=== PATIENT | female | born 1950 | race Caucasian/White ===

== ENCOUNTER → 2016-10-31 | Outpatient (CLI) | payer OTHER | LOC: FIMAGING 09:36 | PROVIDERS: ATTEND Internal Medicine Hematology & Oncology | DX: J90 Pleural effusion, not elsewhere classified (principal); C56.9 Malignant neoplasm of unspecified ovary ==

== ENCOUNTER → 2016-11-05 | Outpatient (CLI) | payer OTHER ==
[~2016-11-05] MED LIST: NA BICARBONATE 50 MEQ/50 ML VIAL ONE
== END ==
LOC: FIMAGING 09:38
PROVIDERS: ATTEND Physician Assistant
DX: Z09 Encounter for follow-up examination after completed treatment for conditions other than malignant neoplasm (principal); Z87.09 Personal history of other diseases of the respiratory system; Z85.43 Personal history of malignant neoplasm of ovary

== ENCOUNTER → 2017-03-31 | Outpatient (CLI) | payer OTHER ==
[~2017-03-31] MED LIST changes: +LIDOCAINE 1% 300 MG/30 ML SDV ONE; -NA BICARBONATE 50 MEQ/50 ML VIAL ONE
== END ==
LOC: FIMAGING 09:11
PROVIDERS: ATTEND Internal Medicine Hematology & Oncology
PROC: 0W993ZZ Drainage of Right Pleural Cavity, Percutaneous Approach (ICD-10-PCS; principal; 2017-03-31)
DX: J90 Pleural effusion, not elsewhere classified (principal)

== ENCOUNTER → 2017-05-15 | Outpatient (CLI) | payer OTHER | LOC: FIMAGING 09:43 | PROVIDERS: ATTEND Internal Medicine Hematology & Oncology | PROC: 0W993ZZ Drainage of Right Pleural Cavity, Percutaneous Approach (ICD-10-PCS; principal; 2017-05-15) | DX: C56.9 Malignant neoplasm of unspecified ovary (principal); J90 Pleural effusion, not elsewhere classified ==

== ENCOUNTER 2017-06-29 10:17 | Emergency (ER) | payer OTHER ==
[2017-06-29 10:23] VITALS: TEMP 98.1
--- NOTE | 2017-06-29 10:32 | CPEKG ---
Heart Rate: 76 RR Interval: 789 P-R Interval: 128 QRSD Interval: 76 QT Interval: 380 QTC Interval: 428 P Dayton: 26 QRS [place]: 12 T Wave [place]: 22 EKG Severity - OTHERWISE NORMAL ECG - EKG Impression: SINUS RHYTHM EKG Impression: LOW VOLTAGE IN FRONTAL LEADS Electronically Signed By: Kevyn Gerard 29-Jun-2017 15:31:42
--- NOTE | 2017-06-29 10:53 | EDPHY ---
H & P Time Seen by Provider: 06/29/17 10:33 HPI/ROS: Chief complaint. Rapid heart rate, dizzy. Patient is a 66-year-old female with metastatic ovarian cancer. She has had recurrent right pleural effusion with thoracentesis ease. Last was about a month ago. She has now had 1 day of sense of rapid heart rate that comes and goes and is somewhat dizzy or lightheaded when it seems to be beating fast. She has some nausea. She yesterday had an ache in the left posterior chest that is not there today. No fever cough. She has shortness of breath with exertion. No heart history. ROS Constitutional. no fever/chills, no weakness Eyes. no problems with vision ENT. no sore throat, no nasal drainage Cardiovascular. No chest discomfort today. Posterior left chest discomfort yesterday. Rapid heart rate intermittently Respiratory. Exertional shortness of breath Abdominal. no abdominal pain, no nausea/vomiting, no diarrhea . no problems urinating MS. no calf pain/swelling, no neck/back pain, no joint pain Skin. no rash Lymph. no swollen glands Neuro. no headache, no dizziness, no difficulty walking or with speech Past Medical/Surgical History: Ovarian cancer, hypothyroid Social History: , nonsmoker, no alcohol Smoking Status: Former smoker Physical Exam: General Appearance: Alert well-developed female mild distress vital signs are stable Eyes: Pupils equal and round no pallor or injection. ENT, Mouth: Mucous membranes are moist. Respiratory: No retractions. Decreased breath sounds right lung base Cardiovascular: Regular rate and rhythm. Gastrointestinal: Ascites present Neurological: Awake and alert, sensory and motor exams grossly normal. Skin: Warm and dry, no rashes. Musculoskeletal: Neck is supple nontender. Extremities symmetrical, full range of motion. Psychiatric: Patient is oriented X 3, there is no agitation. Constitutional: Initial Vital Signs Temperature (C) 36.7 C 06/29/17 10:17 Heart Rate 81 06/29/17 10:17 Respiratory Rate 18 06/29/17 10:17 Blood Pressure 109/86 H 06/29/17 10:17 O2 Sat (%) 94 06/29/17 10:17 O2 Delivery Mode Room Air Allergies/Adverse Reactions: No Known Allergies Allergy (Verified 06/29/17 10:23) Home Medications: Medication Instructions Recorded THYROID 03/07/15 Medical Decision Making - Diagnostics EKG Interpretation: EKG interpreted by me shows normal sinus rhythm with normal interval and axis. QRS is normal there is no significant ST elevation or depression. No arrhythmia. The rate is 76. Low voltage throughout Imaging Results: Imaging Impressions Chest X-Ray 06/29/17 10:39 Impression: Large right pleural effusion with associated atelectasis. Echocardiogram reviewed by me and discussed with Dr. Cox shows trace pericardial effusion but no evidence for tamponade. Cardiac function otherwise normal Chest x-ray shows significant right-sided pleural effusion Procedures: IV normal saline, monitor ED Course/Re-evaluation: On re-evaluation 1:10 p.m. patient is stable. The patient, her , and I discussed imaging and lab results. We discussed treatment plan including recommendation for thoracentesis. They expressed understanding And agreement I discussed the case with Dr. Hawkins, our radiology who will perform the thoracentesis. Ultrasound-guided thoracentesis order is entered. In further discussion with the patient and her at the 1:20 p.m. I explained that the ultrasound guided thoracentesis had been ordered but I can't give them a time frame specifically and could be in 30 minutes aura could be in 2 hours. They are upset about this and do not wish to wait. I encouraged him to call in the morning to schedule the thoracentesis. They do already have an appointment on . I have encouraged him to call or return to the ER should she have worsening symptoms. They expressed understanding and agreement Differential Diagnosis: I considered acute coronary syndrome, pericardial effusion and tamponade. I do not think the patient has pulmonary embolism as and I think slightly elevated D- dimer secondary to the significant pleural effusion. - Data Points Laboratory Results: Laboratory Results 06/29/17 10:35 06/29/17 10:35 06/29/17 06/29/17 06/29/17 11:30 10:35 10:35 WBC RBC Hgb Hct MCV MCH MCHC RDW Plt Count MPV Neut % (Auto) Lymph % (Auto) Greene % (Auto) Eos % (Auto) Baso % (Auto) Nucleat RBC Rel Count Absolute Neuts (auto) Absolute Lymphs (auto) Absolute Monos (auto) Absolute Eos (auto) Absolute Basos (auto) Absolute Nucleated RBC Immature Gran % Immature Gran # D-Dimer 0.61 ug/mLFEU H ug/mLFEU REJ (0.00-0.50) Sodium 136 mEq/L mEq/L (134-144) Potassium 4.7 mEq/L mEq/L (3.5-5.2) Chloride 100 mEq/L mEq/L (97-110) Carbon Dioxide 27 mEq/l mEq/l (22-31) Anion Gap 9 mEq/L mEq/L (8-16) BUN 15 mg/dL mg/dL (7-23) Creatinine 0.8 mg/dL mg/dL (0.6-1.0) Estimated GFR > 60 Glucose 107 mg/dL H mg/dL (70-100) Calcium 9.0 mg/dL mg/dL (8.5-10.4) Troponin I < 0.012 ng/mL ng/mL (0.000-0.034) 06/29/17 10:35 WBC 9.20 10^3/uL 10^3/uL (3.80-9.50) RBC 5.06 10^6/uL 10^6/uL (4.18-5.33) Hgb 14.6 g/dL g/dL (12.6-16.3) Hct 44.2 % % (38.0-47.0) MCV 87.4 fL fL (81.5-99.8) MCH 28.9 pg pg (27.9-34.1) MCHC 33.0 g/dL g/dL (32.4-36.7) RDW 14.9 % % (11.5-15.2) Plt Count 557 10^3/uL H 10^3/uL (150-400) MPV 8.8 fL fL (8.7-11.7) Neut % (Auto) 51.3 % % (39.3-74.2) Lymph % (Auto) 35.2 % % (15.0-45.0) Greene % (Auto) 10.0 % % (4.5-13.0) Eos % (Auto) 2.3 % % (0.6-7.6) Baso % (Auto) 0.8 % % (0.3-1.7) Nucleat RBC Rel Count 0.0 % % (0.0-0.2) Absolute Neuts (auto) 4.72 10^3/uL 10^3/uL (1.70-6.50) Absolute Lymphs (auto) 3.24 10^3/uL H 10^3/uL (1.00-3.00) Absolute Monos (auto) 0.92 10^3/uL H 10^3/uL (0.30-0.80) Absolute Eos (auto) 0.21 10^3/uL 10^3/uL (0.03-0.40) Absolute Basos (auto) 0.07 10^3/uL 10^3/uL (0.02-0.10) Absolute Nucleated RBC 0.00 10^3/uL 10^3/uL (0-0.01) Immature Gran % 0.4 % % (0.0-1.1) Immature Gran # 0.04 10^3/uL 10^3/uL (0.00-0.10) D-Dimer Sodium Potassium Chloride Carbon Dioxide Anion Gap BUN Creatinine Estimated GFR Glucose Calcium Troponin I Departure - Departure Disposition: Home, Routine, Self-Care Clinical Impression: Heart palpitations, Pleural effusion Condition: Fair Instructions: Palpitations (ED), Pleural Effusion (ED) Additional Instructions: Return today for worsening chest discomfort or trouble breathing.. Call tomorrow morning to try to move up your thoracentesis appointment. Radiology scheduling phone number [phone]. Referrals: NONE *PRIMARY CARE P,. [Primary Care Provider] - As per Instructions Guillermina Hampton MD [Medical Doctor] - As per Instructions
[2017-06-29 10:55] LABS: % IMMATURE GRANULYOCYTES 0.4 % (0.0-1.1); ABSOLUTE IMMATURE GRANULOCYTES 0.04 10^3/uL (0.00-0.10); ADD DIFF? NO; ADD MORPH? NO; ADD SCAN? NO; ATYPICAL LYMPHOCYTE FLAG 10 (0-99); FRAGMENT RBC FLAG 0 (0-99); HEMATOCRIT 44.2 % (38.0-47.0); HEMOGLOBIN 14.6 g/dL (12.6-16.3); LEFT SHIFT FLG 0 (0-99); LIPEMIA HEMOLYSIS FLAG 80 (0-99); MEAN CELL HEMOGLOBIN 28.9 pg (27.9-34.1); MEAN CELL VOLUME 87.4 fL (81.5-99.8); MEAN PLATELET VOLUME 8.8 fL (8.7-11.7); PLATELET CLUMPS FLAG 10 (0-99); PLATELET COUNT 557 10^3/uL (150-400); RED BLOOD CELL COUNT 5.06 10^6/uL (4.18-5.33); RED CELL DISTRIBUTION WIDTH 14.9 % (11.5-15.2)
[2017-06-29 10:59] LABS: ANION GAP 9 mEq/L (8-16); CARBON DIOXIDE 27 mEq/l (22-31); CHLORIDE 100 mEq/L (97-110); CREATININE 0.8 mg/dL (0.6-1.0); GLOMERULAR FILTRATION RATE > 60; GLUCOSE 107 mg/dL (70-100); POTASSIUM 4.7 mEq/L (3.5-5.2); SODIUM 136 mEq/L (134-144)
[2017-06-29 11:10] LABS: TROPONIN I < 0.012 ng/mL (0.000-0.034)
--- NOTE | 2017-06-29 13:08 | ECHO ---
[email or web address] [address] [address] Main: [phone] Fax: Transthoracic Echocardiogram Name: KANU FAJARDO MR#: [id number] Study Date: 06/29/2017 Study Time: 11:53 AM Date of : 1950 Age: 66 year(s) Height: ( ) Weight: ( ) BSA: Gender: Female Examination: Echo Indication: Chest Pain Image Quality: Adequate Contrast: Requested by: Kevyn Gerard BP: 135 mmHg/65 mmHg Heart Rate: Rhythm: Normal sinus rhythm Indication: Chest Pain Procedure Staff Seat Joiner Chainstitch: Rekha Meza Reading Physician: Garrett Cox Requesting Provider: Conclusions: Normal global systolic LV function. EF is 67 %. Diastolic dysfunction is present. . The left atrium is mildly dilated. The mitral valve leaflets appear redundant. There is mild bileaflet mitral valve prolapse. Mild to moderate mitral regurgitation. Mild aortic valve regurgitation is present. Moderate tricuspid regurgitation is present. Small pericardial effusion. No echocardiographic evidence of hemodynamic compromise. Bilateral pleural effusion. Measurements: Chambers Valvular Assessment AV/MV Valvular Assessment TV/PV Normal Normal Normal Name Value Range Name Value Range Name Value Range Ao Tessie (MM): 2.6 cm (2.2 cm-3.7 AV Vmax: 1.32 m/s (1 m/s-1.7 TR Vmax: 2.43 mm/s ( - ) cm) m/s) TR PGmax: 24 mmHg ( - ) IVSd (2D): 1.2 cm (0.6 cm-1.1 AV maxP mmHg ( - ) syst. PAP: 29 mmHg ( - ) cm) LVOT Vmax: 1.16 m/s (0.7 m/s-1.1 PV Vmax: 0.87 m/s (0.6 m/s-0.9 LVDd (2D): 3.7 cm (3.9 cm-5.3 m/s) m/s) cm) MV E Vmax: 0.61 m/s ( - ) PV PGmax: 3 mmHg ( - ) LVDs (2D): 2.5 cm (2.1 cm-4 MV A Vmax: 0.42 m/s ( - ) cm) MV E/A: 1.45 ( - ) LVPWd (2D): 0.8 cm ( - ) LVEF (BP): 67 % (>=55 %) RVDd(2D): 2.8 cm (1.9 cm-3.8 cmmm) Patient: KANU FAJARDO Study Date: 06/29/2017 Page 1 of 2 11:53 AM Continued Measurements: Chambers Valvular Assessment AV/MV Valvular Assessment TV/PV Name Value Name Value Name Value LADs Lon.2 cm MV DecTime: 229 m/s CVP (est.): 5 mmHg LA Area: 16.4 cm2 MV E/E' Septal: 9.00 LA Volume: 55 ml MV E/E' Lateral: 7.90 RA Area: 7.4 cm2 MR Vena Contracta: 0.4 cm Additional Vessels Name Value Ao Ascendin.5 cm Findings: Left Ventricle: Normal size left ventricle. No LV hypertrophy. Normal global systolic LV function. EF is 67 %. No regional wall motion abnormality. Diastolic dysfunction is present. . Right Ventricle: Normal size right ventricle. Normal RV function. Left Atrium: The left atrium is mildly dilated. Right Atrium: The right atrium is normal in size. Mitral Valve: The mitral valve leaflets appear redundant. There is mild bileaflet mitral valve prolapse. Mild to moderate mitral regurgitation. Aortic Valve: The aortic valve is normal in appearance and function. Mild aortic valve regurgitation is present. Tricuspid Valve: The tricuspid valve is normal in appearance and function. Moderate tricuspid regurgitation is present. The pulmonary artery pressure is normal. Pulmonic Valve: Pulmonary valve not well visualized. Trivial pulmonic valve regurgitation. Aorta: The aorta is normal. Normal size aortic root measuring 2.6 cm. Normal size ascending aorta measuring 2.5 cm. IVC: The IVC is normal sized. There is greater oli 50% respiratory excursion. Pericardium: Small pericardial effusion. No echocardiographic evidence of hemodynamic compromise. Bilateral pleural effusion. (No Signature Object) Patient: KANU FAJARDO Study Date: 06/29/2017 Page 2 of 2 11:53 AM [id number]
[2017-06-29 13:43] VITALS: RESP 20
[2017-06-29 13:44] VITALS: BP 107/77; PULSE 82; O2SAT 91
== END 2017-06-29 13:48 | disposition home or self-care (01) ==
DX: J90 Pleural effusion, not elsewhere classified (principal); R00.2 Palpitations; Z87.891 Personal history of nicotine dependence

== ENCOUNTER → 2017-06-30 | Outpatient (CLI) | payer OTHER | LOC: FIMAGING 13:36 | PROVIDERS: ATTEND Internal Medicine Hematology & Oncology | PROC: 0W993ZZ Drainage of Right Pleural Cavity, Percutaneous Approach (ICD-10-PCS; principal; 2017-06-30) | DX: J90 Pleural effusion, not elsewhere classified (principal) ==

== ENCOUNTER → 2017-07-17 | Outpatient (CLI) | payer OTHER | LOC: FIMAGING 13:50 | PROVIDERS: ATTEND Internal Medicine Hematology & Oncology | PROC: 0W993ZZ Drainage of Right Pleural Cavity, Percutaneous Approach (ICD-10-PCS; principal; 2017-07-17) | DX: J90 Pleural effusion, not elsewhere classified (principal) ==

== ENCOUNTER → 2017-08-15 | Outpatient (CLI) | payer OTHER ==
[~2017-08-15] MED LIST changes: +IOPAMIDOL (ISOVUE 370) 100 ML BTL IV ONE; -LIDOCAINE 1% 300 MG/30 ML SDV ONE
== END ==
LOC: FIMAGING 12:18
PROVIDERS: ATTEND Internal Medicine Hematology & Oncology
DX: Z45.2 Encounter for adjustment and management of vascular access device (principal)
CPT/HCPCS: 76000; J1642; Q9967

== ENCOUNTER → 2017-08-19 | Outpatient (CLI) | payer OTHER | LOC: FIMAGING 09:20 | PROVIDERS: ATTEND Internal Medicine Hematology & Oncology | PROC: 0W993ZZ Drainage of Right Pleural Cavity, Percutaneous Approach (ICD-10-PCS; principal; 2017-08-19) | DX: C56.1 Malignant neoplasm of right ovary (principal); J91.0 Malignant pleural effusion; R18.0 Malignant ascites ==

== ENCOUNTER → 2017-09-30 | Outpatient (CLI) | payer OTHER ==
[~2017-09-30] MED LIST changes: -IOPAMIDOL (ISOVUE 370) 100 ML BTL IV ONE; +LIDOCAINE 1% 300 MG/30 ML SDV ONE
== END ==
LOC: FIMAGING 11:38
PROVIDERS: ATTEND Internal Medicine Hematology & Oncology
PROC: 0W993ZZ Drainage of Right Pleural Cavity, Percutaneous Approach (ICD-10-PCS; principal; 2017-09-30)
DX: J90 Pleural effusion, not elsewhere classified (principal); R53.83 Other fatigue; Z85.43 Personal history of malignant neoplasm of ovary

== ENCOUNTER → 2017-11-05 | Outpatient (CLI) | payer OTHER | LOC: FIMAGING 11:38 | PROVIDERS: ATTEND Internal Medicine Hematology & Oncology | PROC: 0W993ZZ Drainage of Right Pleural Cavity, Percutaneous Approach (ICD-10-PCS; principal; 2017-11-05) | DX: J90 Pleural effusion, not elsewhere classified (principal); C56.1 Malignant neoplasm of right ovary; C56.2 Malignant neoplasm of left ovary ==

== ENCOUNTER → 2017-12-08 | Outpatient (CLI) | payer OTHER | LOC: FIMAGING 09:06 | PROVIDERS: ATTEND Internal Medicine Hematology & Oncology | PROC: 0W993ZZ Drainage of Right Pleural Cavity, Percutaneous Approach (ICD-10-PCS; principal; 2017-12-08) | DX: J90 Pleural effusion, not elsewhere classified (principal); C56.9 Malignant neoplasm of unspecified ovary ==

== ENCOUNTER → 2017-12-16 | Outpatient (CLI) | payer OTHER ==
[~2017-12-16] MED LIST changes: +IOPAMIDOL (ISOVUE-370) 150 ML BTL IV ONE; -LIDOCAINE 1% 300 MG/30 ML SDV ONE
== END ==
LOC: FIMAGING 12:53
PROVIDERS: ATTEND Surgery
DX: T82.594A Other mechanical complication of infusion catheter, initial encounter (principal)
CPT/HCPCS: 76000; Q9967

== ENCOUNTER 2017-12-19 07:03 | Day surgery (SDC) | payer OTHER ==
--- NOTE | 2017-12-17 16:08 | GHP ---
[f rep st] PREOP HISTORY AND PHYSICAL DATE OF ADMISSION: 12/19/2017 Date of surgery 12/19/2017. HISTORY OF PRESENT ILLNESS: Melissa is a 67-year-old woman with stage IV ovarian cancer, malignant ascites, who has been receiving chemotherapy regularly. Her oncologist is Dr. Hampton. Over the weekend, she developed some issues with the port, including inability to flush, infuse fluids into the port. She was also unable to draw fluid back. She reports that the skin around the port oscar during infusions. She was sent for a fluoroscopy interrogation on 12/16/2017. They were unable to flush or draw from the port, despite replacing with a new Cam needle and were, therefore, unable to assess the functionality of the line. PAST MEDICAL HISTORY: Malignant ascites, hypothyroidism, ovarian cancer, shortness of breath with malignant pleural effusion. PAST SURGICAL HISTORY: Hysterectomy, paracentesis, parathyroidectomy, salpingo- oophorectomy, thoracentesis, ventral hernia repair. MEDICATIONS: [place] Thyroid, Doxil, letrozole. ALLERGIES: No known drug allergies. FAMILY HISTORY: Significant for cancer in both parents, heart disease in father. SOCIAL HISTORY: She is to her , [place]. She denies tobacco use. She uses medical marijuana. She drinks alcohol infrequently. REVIEW OF SYSTEMS: A 10-point review of systems negative aside from HPI. PHYSICAL EXAMINATION: GENERAL: Well-developed, well-nourished woman, no acute distress. Thin. HEENT: Normocephalic, atraumatic. No hearing deficits. Pupils equal and round. No scleral icterus. Mucous membranes moist. NECK: Trachea midline. RESPIRATORY: Clear to auscultation bilaterally. No increased work of breathing. CARDIOVASCULAR: No peripheral edema. Regular rate and rhythm. CHEST: Port site is erythematous. SKIN: Tender to palpation. No skin necrosis. PSYCHIATRIC: Mood and affect normal. NEUROLOGIC : Grossly intact. IMPRESSION AND PLAN: A 67-year-old woman with ovarian cancer, malignant ascites. Her PowerPort is no longer functioning. She will require a port removal and replacement on the opposite side. She is scheduled for a right PowerPort removal and placement of a left ultrasound-guided internal jugular PowerPort placement. She will receive a stat x-ray in the recovery room. Anticipate this to be an outpatient procedure. We discussed risks of surgery, including but not limited to heart attack, stroke, blood clots, or . We discussed risk of infection, bleeding, pneumothorax or need for device removal. I will also perform a paracentesis. I saw and examined the patient and Myra Santiago PA-C acted as scribe. /[id number]/MODL MTDD
[2017-12-19] MEDS ORDERED: ceFAZolin 2 GM/SWFI 2 GM/20 ML SYR IVP ONE (07:13)
[2017-12-19] MEDS ORDERED: LR 1,000 ML IV ONE (07:15)
[2017-12-19] MEDS ORDERED: LIDOCAINE 1% 2 ML INJ ID PRN (07:15)
--- NOTE | 2017-12-19 07:36 | PDHPUP ---
History & Physical Update H&P update statement: This history and physical update is based on an assessment of the patient which was completed after admission or registration (within 24 hours), but prior to the surgery/procedure. H&P update: H&P reviewed & patient examined, no change in patient's condition since H&P completed
--- NOTE | 2017-12-19 07:40 | CPEKG ---
Heart Rate: 70 RR Interval: 857 P-R Interval: 140 QRSD Interval: 76 QT Interval: 392 QTC Interval: 423 P [place]: 72 QRS [place]: 23 T Wave [place]: 46 EKG Severity - OTHERWISE NORMAL ECG - EKG Impression: SINUS RHYTHM EKG Impression: LOW VOLTAGE IN FRONTAL LEADS Electronically Signed By: Francisco Macias 19-Dec-2017 08:22:02
--- NOTE | 2017-12-19 07:55 | PDANEPAE ---
ANE History of Present Illness power port ANE Past Medical History - Cardiovascular History Hx Hypertension: No Hx Arrhythmias: No Hx Chest Pain: No Hx Coronary Artery / Peripheral Vascular Disease: No Hx CHF / Valvular Disease: No Hx Palpitations: No - Pulmonary History Hx COPD: No Hx Asthma/Reactive Airway Disease: No Hx Recent Upper Respiratory Infection: No Hx Oxygen in Use at Home: No Hx Sleep Apnea: No Sleep Apnea Screening Result - Last Documented: Negative Pulmonary History Comment: LAST THORACENTESIS 12/08/2017 - Neurologic History Hx Cerebrovascular Accident: No Hx Seizures: No Hx Dementia: No - Endocrine History Hx Diabetes: No - Renal History Hx Renal Disorders: No - Liver History Hx Hepatic Disorders: No - Neurological & Psychiatric Hx Hx Neurological and Psychiatric Disorders: No - Cancer History Hx Cancer: Yes Cancer History Comment: OVARIAN - Congenital Disorder History Hx Congenital Disorders: No - GI History Hx Gastrointestinal Disorders: Yes Gastrointestinal History Comment: CURRENTLY HAVING GI ISSUES TO HAVE FU CT - Other Health History Other Health History: ASCITES-PARACENTESIS WEEKLY 12/12/17. THORACENTESIS - Chronic Pain History Chronic Pain: No - Surgical History Prior Surgeries: PORT PLACEMENT 2013 AT [facility]. DEBULKING SURG 10/2013. TOTAL HYSTERECTOMY. PARATHYROIDECTOMY. VENTRAL HERNIA ANE Review of Systems Review of systems is: negative Review of Systems: - Exercise capacity METS (RN): 3 METS ANE Patient History - Allergies Allergies/Adverse Reactions: No Known Allergies Allergy (Verified 06/29/17 10:23) - Home Medications Home medications: home medication list seen and reviewed Home Medications: ARMOUR THYROID DAILY 12/18/17 [Last Taken 12/19/17] Aspirin 81mg (*) HS 12/18/17 [Last Taken 12/17/17] Atorvastatin Calcium DAILY 12/18/17 [Last Taken 12/18/17] Celecoxib BID 12/18/17 [Last Taken 12/18/17] Herbals/Supplements -Info Only DAILY 12/18/17 [Last Taken 12/18/17] - NPO status NPO Status: no food or drink >8 hours - Anes Hx Anes Hx: no prior problems - Smoking Hx Smoking Status: Former smoker - Alcohol Use Alcohol Use: None ANE Labs/Vital Signs - Vital Signs Height: 169.55 cm Weight: 54.431 kg ANE Physical Exam - Airway Neck exam: FROM Mallampati Score: Class 1 Mouth exam: normal dental/mouth exam - Pulmonary Pulmonary: reduced air movement (R) - Cardiovascular Cardiovascular: regular rate and rhythym - ASA Status ASA Status: III ANE Anesthesia Plan Total IV Anesthesia: Yes
[2017-12-19] MEDS ORDERED: MIDAZOLAM 2 MG/2 ML VIAL IVP ONE (07:56)
[2017-12-19] MEDS ORDERED: BUPIVACAINE 0.5% 30 ML SDV ONE (08:13)
[2017-12-19] MEDS ORDERED: PROPOFOL/EMULSION 500 MG/50 ML BOTTLE IV ONE (08:25)
[2017-12-19] MEDS ORDERED: LIDOCAINE 1% 300 MG/30 ML SDV ONE (08:26)
[2017-12-19] MEDS ORDERED: LIDOCAINE 2% 100 MG/5 ML SYR ONE (08:34)
--- NOTE | 2017-12-19 08:48 | PDANEPAE ---
ANE Past Medical History - Cardiovascular History Hx Hypertension: No Hx Arrhythmias: No Hx Chest Pain: No Hx Coronary Artery / Peripheral Vascular Disease: No Hx CHF / Valvular Disease: No Hx Palpitations: No - Pulmonary History Hx COPD: No Hx Asthma/Reactive Airway Disease: No Hx Recent Upper Respiratory Infection: No Hx Oxygen in Use at Home: No Hx Sleep Apnea: No Sleep Apnea Screening Result - Last Documented: Negative Pulmonary History Comment: LAST THORACENTESIS 12/08/2017 - Neurologic History Hx Cerebrovascular Accident: No Hx Seizures: No Hx Dementia: No - Endocrine History Hx Diabetes: No - Renal History Hx Renal Disorders: No - Liver History Hx Hepatic Disorders: No - Neurological & Psychiatric Hx Hx Neurological and Psychiatric Disorders: No - Cancer History Hx Cancer: Yes Cancer History Comment: OVARIAN - Congenital Disorder History Hx Congenital Disorders: No - GI History Hx Gastrointestinal Disorders: Yes Gastrointestinal History Comment: CURRENTLY HAVING GI ISSUES TO HAVE FU CT - Other Health History Other Health History: ASCITES-PARACENTESIS WEEKLY 12/12/17. THORACENTESIS - Chronic Pain History Chronic Pain: No - Surgical History Prior Surgeries: PORT PLACEMENT 2013 AT [facility]. DEBULKING SURG 10/2013. TOTAL HYSTERECTOMY. PARATHYROIDECTOMY. VENTRAL HERNIA ANE Review of Systems Review of Systems: - Exercise capacity METS (RN): 3 METS ANE Patient History - Allergies Allergies/Adverse Reactions: No Known Allergies Allergy (Verified 06/29/17 10:23) - Home Medications Home Medications: ARMOUR THYROID DAILY 12/18/17 [Last Taken 12/19/17] Aspirin 81mg (*) HS 12/18/17 [Last Taken 12/17/17] Atorvastatin Calcium DAILY 12/18/17 [Last Taken 12/18/17] Celecoxib BID 12/18/17 [Last Taken 12/18/17] Herbals/Supplements -Info Only DAILY 12/18/17 [Last Taken 12/18/17] - Smoking Hx Smoking Status: Former smoker ANE Labs/Vital Signs - Vital Signs Height: 169.55 cm Weight: 54.431 kg
[2017-12-19] MEDS ORDERED: DEXAMETHASONE 4 MG/ML VIAL IVP PRN (08:56)
[2017-12-19] MEDS ORDERED: fentaNYL 100 MCG/2 ML INJ IVP PRN (08:56)
[2017-12-19] MEDS ORDERED: MEPERIDINE 25 MG/ML SYR IVP PRN (08:56)
[2017-12-19] MEDS ORDERED: ONDANSETRON 4 MG/2 ML VIAL IVP PRN (08:56)
[2017-12-19] MEDS ORDERED: HYDROCODONE/APAP 5/325 TAB PO PRN (08:56)
[2017-12-19] MEDS ORDERED: NALOXONE HCL 0.4 MG/ML INJ IVP PRN (08:56)
[2017-12-19] MEDS ORDERED: HYDROmorphONE/DILAUDID 1 MG/ML INJ IVP PRN (08:56)
[2017-12-19] MEDS ORDERED: ACETAMINOPHEN 500 MG TAB PO PRN (08:56)
--- NOTE | 2017-12-19 09:00 | POSTANESTH ---
Post Anesthetic Evaluation Cardiovascular Status: Normal, Stable, Similar to Pre-Op Cond Respiratory Status: Similar to Pre-op Cond. Level of Consciousness/Mental Status: Can Participate in Eval, Mildly Sleepy, Arousable Pain Control: Adequate, Prn Tx Ordered Nausea/Vomiting Control: Adequate, Prn Tx Ordered Complications Possibly Related to Anesthesia: None Noted
[2017-12-19] MEDS ORDERED: PROPOFOL 200 MG/20 ML VIAL ONE (09:34)
--- NOTE | 2017-12-19 09:53 | POSTOPPROG ---
Post Op Note Date of Operation: 12/19/17 Surgeon: Jovita Ross Anesthesiologist: cristhian Anesthesia: IV Sedation Pre-op Diagnosis: met ovarian ca with port not functioning Post-op Diagnosis: same Indication: 67 yo with ascites and malfunction port Procedure: Remove port. Replace port, paracentesis Findings: 650 ascites Inf/Abcess present in the surg proc area at time of surgery?: No Depth: Superfical (Skin SQ) EBL: Minimal Specimen(s): none
[2017-12-19 12:07] VITALS: BP 94/62
--- NOTE | 2017-12-21 16:21 | GOP ---
[f rep st] OPERATIVE REPORT DATE OF OPERATION: 12/19/2017 SURGEON: Jovita Ross MD CIVIL CAD TECH: Lance Mcmillan M.D., who was requested by me for his technical expertise. PREOPERATIVE DIAGNOSIS: Ovarian cancer with malignant ascites and malfunctioning port. POSTOPERATIVE DIAGNOSIS: Ovarian cancer with malignant ascites and malfunctioning port. PROCEDURE PERFORMED: 1. Port removal. 2. Port placement by Dr. Mcmillan. 3. Paracentesis. FINDINGS: Port very adhered at IJ SPECIMENS: 1. None. ESTIMATED BLOOD LOSS: 20 mL. INDICATIONS: The patient is a 67-year-old woman with ovarian cancer noted for many years. She has had her current port for 4 years and it recently does not withdraw or can be flushed. A portogram was attempted and no flow was documented. She presents for removal of her old port and replacement. She also has malignant ascites and obtains paracentesis every 7-10 days. DESCRIPTION OF PROCEDURE: The patient was brought into the operating room and placed supine on the table. Monitored anesthesia care with IV sedation was performed. I infiltrated all sites with 0.5% Marcaine prior to making incisions. I made an incision over her neck and I was able to identify her previous catheter. I made an incision on her chest and dissected the catheter free from surrounding tissues. I clamped the catheter in her neck. Once I was able to dissect the port free in her neck, I then divided the catheter by the neck and removed the port. Next, I grasped the catheter and I attempted to thread a wire through the catheter. A standard wire did not go through and so I used a Glidewire. I then had to dissect the port free in her neck, which was much more difficult than is usual. Once a Glidewire was in place, I performed fluoroscopy and documented the Glidewire into the heart. I placed a dilator and sheath over the Glidewire, but the dilator and sheath would not go over the Glidewire easily. I then exchanged this for a different dilator and sheath, and I again had a similar problem. Placement was again performed, confirming the wire in the heart. I then called my colleague, Dr. Mcmillan, to come and assist with this portion of the case. Please see his dictation for placement of the port. After he was done with port placement, I then closed the pocket with 3-0 Vicryl followed by 4-0 Monocryl. I closed the neck incision with 4-0 Monocryl. Dermabond applied. Next, I prepped her abdomen with Betadine. I placed an angiocatheter and obtained 650 mL of ascites. I left the catheter in place and placed an ostomy appliance over it. She was awakened in the operating room, extubated, and transferred to the PACU in stable condition. A chest x-ray was performed, which showed the port in good position without complication. /[id number]/MODL MTDD
== END 2017-12-19 12:00 | disposition home or self-care (01) ==
LOC: FSGY 07:03
PROVIDERS: ATTEND Surgery
PROC: 0JPT0XZ Removal of Tunneled Vascular Access Device from Trunk Subcutaneous Tissue and Fascia, Open Approach (ICD-10-PCS; principal; 2017-12-19 08:30)
PROC: 0W9F30Z Drainage of Abdominal Wall with Drainage Device, Percutaneous Approach (ICD-10-PCS; principal; 2017-12-19 08:30)
PROC: B5181ZA Fluoroscopy of Superior Vena Cava using Low Osmolar Contrast, Guidance (ICD-10-PCS; 2017-12-19 08:30)
PROC: 02HV33Z Insertion of Infusion Device into Superior Vena Cava, Percutaneous Approach (ICD-10-PCS; 2017-12-19 08:30)
PROC: 0JH60XZ Insertion of Tunneled Vascular Access Device into Chest Subcutaneous Tissue and Fascia, Open Approach (ICD-10-PCS; 2017-12-19 08:30)
DX: T82.594A Other mechanical complication of infusion catheter, initial encounter (principal); R18.0 Malignant ascites; C56.9 Malignant neoplasm of unspecified ovary; J90 Pleural effusion, not elsewhere classified; E03.9 Hypothyroidism, unspecified; Y65.8 Other specified misadventures during surgical and medical care; Z87.891 Personal history of nicotine dependence; Z90.710 Acquired absence of both cervix and uterus; Z90.722 Acquired absence of ovaries, bilateral
CPT/HCPCS: 36561; 36590; 49082; 71045; 76001; 93005; C1769; C1788; J0690; J1642; J2001; J2250; J2704

== ENCOUNTER → 2018-01-07 | Outpatient (CLI) | payer OTHER ==
[~2018-01-07] MED LIST changes: -IOPAMIDOL (ISOVUE-370) 150 ML BTL IV ONE; +LIDOCAINE 1% 300 MG/30 ML SDV ONE
== END ==
LOC: FIMAGING 09:50
PROVIDERS: ATTEND Internal Medicine Hematology & Oncology
PROC: 0W993ZZ Drainage of Right Pleural Cavity, Percutaneous Approach (ICD-10-PCS; principal; 2018-01-07)
DX: J90 Pleural effusion, not elsewhere classified (principal); C56.9 Malignant neoplasm of unspecified ovary

== ENCOUNTER → 2018-01-30 | Outpatient (CLI) | payer OTHER | LOC: BHFA 14:45 | PROVIDERS: ATTEND Internal Medicine Cardiovascular Disease | DX: Z51.11 Encounter for antineoplastic chemotherapy (principal) ==

== ENCOUNTER → 2018-02-10 | Outpatient (CLI) | payer OTHER | LOC: FIMAGING 11:49 | PROVIDERS: ATTEND Internal Medicine Hematology & Oncology | PROC: 0W993ZZ Drainage of Right Pleural Cavity, Percutaneous Approach (ICD-10-PCS; principal; 2018-02-10) | DX: J90 Pleural effusion, not elsewhere classified (principal); R06.02 Shortness of breath; J98.11 Atelectasis; C56.9 Malignant neoplasm of unspecified ovary ==

== ENCOUNTER → 2018-03-09 | Outpatient (CLI) | payer OTHER ==
[~2018-03-09] MED LIST changes: +LIDO/EPI 1% **Not for Epidural 20 ML MDV ONE
== END ==
LOC: FIMAGING 12:25
PROVIDERS: ATTEND Internal Medicine Hematology & Oncology
PROC: 0W993ZZ Drainage of Right Pleural Cavity, Percutaneous Approach (ICD-10-PCS; principal; 2018-03-09)
DX: C56.9 Malignant neoplasm of unspecified ovary (principal); J91.0 Malignant pleural effusion; R18.0 Malignant ascites

== ENCOUNTER → 2018-04-08 | Outpatient (CLI) | payer OTHER ==
[~2018-04-08] MED LIST changes: -LIDO/EPI 1% **Not for Epidural 20 ML MDV ONE
== END ==
LOC: FIMAGING 10:13
PROVIDERS: ATTEND Internal Medicine Hematology & Oncology
PROC: 0W993ZZ Drainage of Right Pleural Cavity, Percutaneous Approach (ICD-10-PCS; principal; 2018-04-08)
DX: R18.0 Malignant ascites (principal); J91.0 Malignant pleural effusion; C56.9 Malignant neoplasm of unspecified ovary; R06.02 Shortness of breath

== ENCOUNTER → 2018-05-06 | Outpatient (CLI) | payer OTHER | LOC: FIMAGING 12:21 | PROVIDERS: ATTEND Internal Medicine Hematology & Oncology | PROC: 0W993ZZ Drainage of Right Pleural Cavity, Percutaneous Approach (ICD-10-PCS; principal; 2018-05-06) | DX: C56.9 Malignant neoplasm of unspecified ovary (principal); J91.0 Malignant pleural effusion ==

== ENCOUNTER → 2018-05-19 | Outpatient (CLI) | payer OTHER | LOC: FIMAGING 09:45 | PROVIDERS: ATTEND Internal Medicine Hematology & Oncology | PROC: 0W993ZZ Drainage of Right Pleural Cavity, Percutaneous Approach (ICD-10-PCS; principal; 2018-05-19) | DX: J90 Pleural effusion, not elsewhere classified (principal); C56.9 Malignant neoplasm of unspecified ovary ==

== ENCOUNTER → 2018-05-28 | Outpatient (CLI) | payer OTHER | LOC: FIMAGING 08:03 | PROVIDERS: ATTEND Internal Medicine Hematology & Oncology | PROC: 0W993ZZ Drainage of Right Pleural Cavity, Percutaneous Approach (ICD-10-PCS; principal; 2018-05-28) | DX: J90 Pleural effusion, not elsewhere classified (principal) ==

== ENCOUNTER → 2018-06-05 | Outpatient (CLI) | payer OTHER | LOC: FIMAGING 10:19 | PROVIDERS: ATTEND Internal Medicine Hematology & Oncology | DX: Z09 Encounter for follow-up examination after completed treatment for conditions other than malignant neoplasm (principal); Z95.828 Presence of other vascular implants and grafts ==

== ENCOUNTER → 2018-06-15 | Outpatient (CLI) | payer OTHER | LOC: FIMAGING 08:25 | PROVIDERS: ATTEND Internal Medicine Hematology & Oncology | PROC: 0W993ZZ Drainage of Right Pleural Cavity, Percutaneous Approach (ICD-10-PCS; principal; 2018-06-15) | DX: R06.02 Shortness of breath (principal); J91.0 Malignant pleural effusion; R18.0 Malignant ascites ==

== ENCOUNTER → 2018-06-25 | Outpatient (CLI) | payer OTHER | LOC: FIMAGING 08:30 | PROVIDERS: ATTEND Internal Medicine Hematology & Oncology | PROC: 0W993ZZ Drainage of Right Pleural Cavity, Percutaneous Approach (ICD-10-PCS; principal; 2018-06-25) | DX: R06.02 Shortness of breath (principal); J91.0 Malignant pleural effusion; R18.0 Malignant ascites ==

== ENCOUNTER → 2018-07-03 | Outpatient (CLI) | payer OTHER | LOC: FIMAGING 08:35 | PROVIDERS: ATTEND Internal Medicine Hematology & Oncology | PROC: 0W993ZZ Drainage of Right Pleural Cavity, Percutaneous Approach (ICD-10-PCS; principal; 2018-07-03) | DX: R18.0 Malignant ascites (principal); J91.0 Malignant pleural effusion; C56.9 Malignant neoplasm of unspecified ovary ==

== ENCOUNTER → 2018-07-10 | Outpatient (CLI) | payer OTHER | LOC: FIMAGING 08:12 | PROVIDERS: ATTEND Internal Medicine Hematology & Oncology | PROC: 0W993ZZ Drainage of Right Pleural Cavity, Percutaneous Approach (ICD-10-PCS; principal; 2018-07-10) | DX: C56.9 Malignant neoplasm of unspecified ovary (principal); R18.0 Malignant ascites; J91.0 Malignant pleural effusion ==

== ENCOUNTER → 2018-07-17 | Outpatient (CLI) | payer OTHER | LOC: FIMAGING 08:14 | PROVIDERS: ATTEND Internal Medicine Hematology & Oncology | PROC: 0W993ZZ Drainage of Right Pleural Cavity, Percutaneous Approach (ICD-10-PCS; principal; 2018-07-17) | PROC: 07B43ZX Excision of Left Upper Extremity Lymphatic, Percutaneous Approach, Diagnostic (ICD-10-PCS; principal; 2018-07-17) | DX: C79.89 Secondary malignant neoplasm of other specified sites (principal); J91.0 Malignant pleural effusion; C56.9 Malignant neoplasm of unspecified ovary ==

== ENCOUNTER → 2018-07-24 | Outpatient (CLI) | payer OTHER | LOC: FIMAGING 10:11 | PROVIDERS: ATTEND Nurse Practitioner | DX: C56.1 Malignant neoplasm of right ovary (principal); C56.2 Malignant neoplasm of left ovary; C57.01 Malignant neoplasm of right fallopian tube; J91.0 Malignant pleural effusion; R18.0 Malignant ascites ==

== ENCOUNTER → 2018-08-17 | Outpatient (CLI) | payer OTHER | LOC: FIMAGING 10:07 | PROVIDERS: ATTEND Internal Medicine Hematology & Oncology | PROC: 0W993ZZ Drainage of Right Pleural Cavity, Percutaneous Approach (ICD-10-PCS; principal; 2018-08-17) | DX: J90 Pleural effusion, not elsewhere classified (principal) ==

== ENCOUNTER → 2018-08-24 | Outpatient (CLI) | payer OTHER ==
[~2018-08-24] MED LIST changes: +BUPIVACAINE 0.5% 30 ML SDV ONE
== END ==
LOC: FIMAGING 12:08
PROVIDERS: ATTEND Internal Medicine Hematology & Oncology
PROC: 0W993ZZ Drainage of Right Pleural Cavity, Percutaneous Approach (ICD-10-PCS; principal; 2018-08-24)
DX: J90 Pleural effusion, not elsewhere classified (principal); R06.02 Shortness of breath
CPT/HCPCS: J1642

== ENCOUNTER → 2018-08-28 | Outpatient (CLI) | payer OTHER ==
[~2018-08-28] MED LIST changes: -BUPIVACAINE 0.5% 30 ML SDV ONE
== END ==
LOC: FIMAGING 11:55
PROVIDERS: ATTEND Internal Medicine Hematology & Oncology
PROC: 0W993ZZ Drainage of Right Pleural Cavity, Percutaneous Approach (ICD-10-PCS; principal; 2018-08-28)
DX: J90 Pleural effusion, not elsewhere classified (principal)

== ENCOUNTER → 2018-09-03 | Outpatient (CLI) | payer OTHER | LOC: FIMAGING 14:12 | PROVIDERS: ATTEND Internal Medicine Hematology & Oncology | PROC: 0W9930Z Drainage of Right Pleural Cavity with Drainage Device, Percutaneous Approach (ICD-10-PCS; principal; 2018-09-03) | DX: J90 Pleural effusion, not elsewhere classified (principal) ==

== ENCOUNTER 2018-09-08 11:08 | Emergency (ER) | payer OTHER ==
--- NOTE | 2018-09-08 11:24 | EDPHY ---
H & P Time Seen by Provider: 09/08/18 11:22 - Personal History Tetanus Vaccine Date: 2014 - Medical/Surgical History Hx Asthma: No Hx Chronic Respiratory Disease: No Hx Diabetes: No Hx Cardiac Disease: No Hx Renal Disease: No Hx Cirrhosis: No Hx Alcoholism: No Hx HIV/AIDS: No Hx Splenectomy or Spleen Trauma: No Other PMH: ovarian CA, Thyroid - Social History Smoking Status: Former smoker Constitutional: Initial Vital Signs Temperature (C) 36.7 C 09/08/18 11:51 Heart Rate 93 09/08/18 11:51 Respiratory Rate 16 09/08/18 11:51 Blood Pressure 121/77 H 09/08/18 11:51 O2 Sat (%) 91 L 09/08/18 11:51 O2 Delivery Mode Room Air Allergies/Adverse Reactions: No Known Allergies Allergy (Verified 04/29/18 10:44) Home Medications: Medication Instructions Recorded ARMOUR THYROID 12/18/17 Celecoxib BID 12/18/17 Herbals/Supplements -Info Only 12/18/17 Ibuprofen [Motrin (*)] 600 mg PO Q6HRS PRN tab 04/30/18 Medical Decision Making - Diagnostics Imaging Results: Imaging Impressions Neck CTA 09/08/18 11:28 Impression: 1. No evidence of carotid artery disease within the neck.. 2. Increase in supraclavicular lymphadenopathy on the left since prior outside CT study. 3. Prominent external jugular vein bilaterally. The internal jugular vein on the left is narrowed secondary to lymphadenopathy similar to the prior study. If there is suspicion for thrombosis then consider correlation with ultrasound. 4. Recurrent moderate to large right pleural effusion. 5. Aberrant right subclavian artery. Note: All calculations were calculated using NASCET criteria. Findings discussed with Rambo Mak MD at 12:56 hour, 09/08/2018. Imaging: Discussed imaging studies w/ faculty i on call medical assistant Radiologist, I viewed and interpreted images myself ED Course/Re-evaluation: CHIEF COMPLAINT: Swollen left neck vein HISTORY OF PRESENT ILLNESS: The patient is a 68 y/o female with a history of ovarian cancer with mets to her lymph nodes complaining of a swollen left neck vein. For the past 3 days she has had abdominal cramping, nausea, and diarrhea. She took Zofran and Imodium which only mildly alleviated her GI symptoms. This morning she woke up and noticed that a vein in her left neck was very swollen. No chest pain, shortness of breath, urinary complaints, numbness, paresthesias, fevers. REVIEW OF SYSTEMS: A comprehensive 10 system review of systems is otherwise negative aside from elements mentioned in the history of present illness and medical decision making. PHYSICAL EXAM: HR, BP, O2 Sat, RR. Temp noted General Appearance: Alert, well hydrated, appropriate, and non-toxic appearing. Head: Atraumatic without scalp tenderness or obvious injury Eyes: Pupils equal, round, reactive to light and accommodation, EOMI, no trauma , no injection. Ears: Clear bilaterally, no perforation, normal landmarks Nose: Atraumatic, no rhinorrhea, clear. Throat: There is no erythema or exudates, no lesions, normal tonsils, mucus membranes moist. Neck: Hard, immobile, irregular, bilateral supraclavicular lymphadenopathy that is more significant at the base of the external jugular vein. Swollen left external jugular vein with tenderness to palpation. Supple, 2+ carotid upstroke. Respiratory: No retractions, no distress, no wheezes, and no accessory muscle use. Lungs are clear to auscultation bilaterally. Cardiovascular: Regular rate and rhythm, no murmurs, rubs, or gallops. Bilateral carotid, radial, dorsalis pedis, and posterior tibial pulses intact. Good capillary refill all extremities. Gastrointestinal: Abdomen is soft, nontender, non-distended, no masses, no rebound, no guarding, no peritoneal signs. Musculoskeletal: Normal active ROM of all extremities, atraumatic. Neurological: Alert, appropriate, and interactive. The patient has normal DTRs and non-focal cranial nerves, motor, sensory, and cerebellar exam. Skin: No rashes, good turgor, no nodules on palpation. Past medical history: Ovarian cancer Past surgical history: Denies Family history: Denies Social history: at bedside, retired, lives in [place] DIAGNOSTICS/PROCEDURES/CRITICAL CARE TIME: EKG: The 12 lead EKG was interpreted by myself as sinus rhythm with a rate of 79. See hard copy and/or "tracemaster" electronic copy for interpretation. Neck CTA: No acute findings. Worsening lymphadenopathy. DIFFERENTIAL DIAGNOSIS: The differential diagnosis for the patient's neck swelling included but was not limited to lymphadenopathy, dilated external jugular vein, hypoalbuminemia, congestive heart failure, cor pulmonale, venous stasis, trauma, and embolus. MEDICAL DECISION MAKING: The patient is a 68 y/o female with a history of ovarian cancer with mets to her lymph nodes presenting with a swollen left neck vein. On exam she has swollen left external jugular vein with tenderness to palpation. She also has a hard, immobile, irregular, bilateral supraclavicular lymphadenopathy that is more significant at the base of the external jugular vein. Labs, EKG, and neck CTA ordered. 1138: I reviewed patient's EKG as sinus rhythm with a rate of 79. 1305: I consulted with Dr. Phelan, radiologist, regarding patient's neck CTA findings. There are no acute findings, but the patient does have worsening chronic processes. There is no evidence of a clot in her external jugular vein. 1308: Reassessed patient and discussed imaging and laboratory studies. I have advised her to follow up with her PCP or oncologist. Return precautions provided ; patient is comfortable with this plan. - Data Points Laboratory Results: 09/08/18 11:53 POC Hgb 10.9 gm/dL L gm/dL (12.6-16.3) POC Hct 32 % L % (38-47) POC Sodium 136 mEq/L mEq/L (135-145) POC Potassium 4.0 mEq/L mEq/L (3.3-5.0) POC Chloride 101 mEq/L mEq/L (97-110) POC BUN 11 mg/dL mg/dL (7-23) POC Creatinine 0.7 mg/dL mg/dL (0.6-1.0) POC Glucose 117 mg/dL H mg/dL (70-100) Point of Care Test Results: Chemistry 09/08/18 11:53 POC Sodium 136 mEq/L mEq/L (135-145) POC Potassium 4.0 mEq/L mEq/L (3.3-5.0) POC Chloride 101 mEq/L mEq/L (97-110) POC BUN 11 mg/dL mg/dL (7-23) POC Creatinine 0.7 mg/dL mg/dL (0.6-1.0) POC Glucose 117 mg/dL H mg/dL (70-100) ISTAT H&H 09/08/18 11:53 POC Hgb 10.9 gm/dL L gm/dL (12.6-16.3) POC Hct 32 % L % (38-47) Departure - Departure Disposition: Home, Routine, Self-Care Clinical Impression: Left cervical lymphadenopathy, dilated external jugular vein Condition: Good Instructions: Lymphadenopathy (ED) Additional Instructions: 1. Follow-up with your primary doctor within 72 hours. 2. Return to the Emergency Department for fever, chest pain, shortness of breath , increasing pain or other worsening of condition. Referrals: Carlos Garcia MD [Medical Doctor] - As per Instructions Report Scribed for: Rambo Mak Report Scribed by: Esthela Salcido Date of Report: 09/08/18 Time of Report: 13:07
--- NOTE | 2018-09-08 11:43 | CPEKG ---
Test Reason : OPEN Blood Pressure : / mmHG Vent. Rate : 079 BPM Atrial Rate : 079 BPM P-R Int : 104 ms QRS Dur : 082 ms QT Int : 377 ms P-R-T Axes : 015 027 044 degrees QTc Int : 433 ms Sinus rhythm Short MA interval Low voltage, extremity leads Confirmed by Rambo Mak ([id number]) on 09/08/2018 11:42:38 AM Referred By: Confirmed By:Rambo Mak
[2018-09-08] MEDS ORDERED: IOPAMIDOL (ISOVUE 370) 100 ML BTL IV ONE (11:54)
[2018-09-08 13:22] VITALS: BP 122/75
== END 2018-09-08 13:22 | disposition home or self-care (01) ==
DX: R59.0 Localized enlarged lymph nodes (principal); C56.1 Malignant neoplasm of right ovary; C56.2 Malignant neoplasm of left ovary
CPT/HCPCS: 36591; 70498; 93005; 99285; Q9967; 82435-PO; 82565-PO; 82947-PO; 84132-PO; 84295-PO; 84520-PO; 85014-PO

== ENCOUNTER → 2018-09-10 | Outpatient (CLI) | payer OTHER | LOC: FIMAGING 09:40 | PROVIDERS: ATTEND Internal Medicine Hematology & Oncology | DX: J90 Pleural effusion, not elsewhere classified (principal); R06.02 Shortness of breath ==

== ENCOUNTER → 2018-09-17 | Outpatient (CLI) | payer OTHER | LOC: FIMAGING 09:51 | PROVIDERS: ATTEND Internal Medicine Hematology & Oncology | PROC: 0W993ZZ Drainage of Right Pleural Cavity, Percutaneous Approach (ICD-10-PCS; principal; 2018-09-17) | DX: J90 Pleural effusion, not elsewhere classified (principal) ==

== ENCOUNTER 2018-09-25 09:15 | Day surgery (SDC) | payer OTHER ==
[2018-09-25] MEDS ORDERED: fentaNYL 100 MCG/2 ML INJ IVP PRN (09:40)
[2018-09-25] MEDS ORDERED: MIDAZOLAM 2 MG/2 ML VIAL IVP PRN (09:40)
[2018-09-25] MEDS ORDERED: ceFAZolin 2 GM/DEXTROSE 100 ML IV ONE (09:40)
[2018-09-25] MEDS ORDERED: MEPERIDINE 25 MG/ML SYR IVP PRN (09:40)
[2018-09-25] MEDS ORDERED: NALOXONE HCL 0.4 MG/ML INJ IVP PRN (09:40)
[2018-09-25] MEDS ORDERED: FLUMAZENIL 0.5 MG/5 ML MDV IVP PRN (09:40)
[2018-09-25] MEDS ORDERED: NS 1,000 ML IV SCH (09:45)
[2018-09-25 10:27] LABS: PROTIME(PATIENT) 13.4 SEC (12.0-15.0)
[2018-09-25 12:52] VITALS: BP 105/68
[2018-09-25] MEDS ORDERED: ONDANSETRON 4 MG/2 ML VIAL IVP PRN (13:15)
[2018-09-25] MEDS ORDERED: ACETAMINOPHEN 325 MG TAB PO PRN (13:15)
--- NOTE | 2018-09-25 13:17 | PDPROPOC ---
Sedation Plan of Care Sedation Plan of Care: vital signs stable, mental status noted, patient educated of risks, benefits, alternatives, patient can tolerate sedation ASA Classification: ASA 3 Planned drugs: fentanyl, midazolam Mallampati Score: Class 1 Mallampati Reference Image: Patient passed 3-3-2 rule?: Yes
--- NOTE | 2018-09-25 13:17 | PDGENHP ---
History & Physical Chief Complaint: LARGE RECURRENT RT PLEURAL EFFUSION History of Present Illness: METASTATIC OVARIAN CANCER Pertinent Past, Social, Family History: NON SMOKER. HAS REQUIRED WEEKLY LARGE VOLUME THORACENTESIS Relevant Physical Exam: LARGE RT PLEURAL EFFUSION Cardiorespiratory Assessment: RRR,
--- NOTE | 2018-09-25 13:18 | PDRADPN ---
Radiology Procedure Note Date of Procedure: 09/25/18 Radiologist: Anastasiya Nuñez Anesthesia: IV Sedation Pre-op Diagnosis: METASTATIC OVARIAN CANCER Post-op Diagnosis: SAME Indication: LARGE RECURRENT RT PLEURAL EFFUSION Procedure: TUNNELED THORACENTESIS CATHETER PLACEMENT Finding(s): 1700 CC REMOVED. Inf/Abcess present in the surg proc area at time of surgery?: No
== END 2018-09-25 13:26 | disposition home or self-care (01) ==
LOC: FIMAGING 09:15
PROVIDERS: ATTEND Internal Medicine Hematology & Oncology
PROC: 0W9930Z Drainage of Right Pleural Cavity with Drainage Device, Percutaneous Approach (ICD-10-PCS; principal; 2018-09-25 12:12)
DX: C78.6 Secondary malignant neoplasm of retroperitoneum and peritoneum (principal); J91.0 Malignant pleural effusion; Z85.43 Personal history of malignant neoplasm of ovary
CPT/HCPCS: 32550; 99152; C1729; C2617; J0690; J2250; J2310; J3010

== ENCOUNTER → 2018-11-11 | Outpatient (CLI) | payer OTHER ==
[~2018-11-11] MED LIST changes: +IOPAMIDOL (ISOVUE 370) 100 ML BTL IV ONE; -LIDOCAINE 1% 300 MG/30 ML SDV ONE
== END ==
LOC: FIMAGING 10:16
PROVIDERS: ATTEND Internal Medicine Hematology & Oncology
DX: C78.2 Secondary malignant neoplasm of pleura (principal); Z85.43 Personal history of malignant neoplasm of ovary
CPT/HCPCS: 71275; J1642; Q9967

== ENCOUNTER 2019-02-03 09:36 | Day surgery (SDC) | payer OTHER ==
[2019-02-03 10:18] VITALS: BP 108/69
[2019-02-03] MEDS ORDERED: IOPAMIDOL (ISOVUE-300) 100 ML BTL ONE (12:13)
== END 2019-02-03 12:00 | disposition home or self-care (01) ==
LOC: FIMAGING 09:36
PROVIDERS: ATTEND Radiology Diagnostic Radiology
PROC: BW111ZZ Fluoroscopy of Abdomen and Pelvis using Low Osmolar Contrast (ICD-10-PCS; principal; 2019-02-03)
DX: Z46.89 Encounter for fitting and adjustment of other specified devices (principal); C78.2 Secondary malignant neoplasm of pleura; Z85.43 Personal history of malignant neoplasm of ovary; Z90.710 Acquired absence of both cervix and uterus
CPT/HCPCS: J1642; Q9967